=== PATIENT | male | born 1995 | race African-American/Black ===

== ENCOUNTER 2016-05-12 13:17 | Emergency (ER) | payer OTHER ==
[2016-05-12 13:12] LABS: URINE SOURCE CLEAN CATCH
[2016-05-12 13:14] LABS: URINE APPEARANCE CLEAR; URINE BILIRUBIN NEG (NEG); URINE BLOOD NEG (NEG); URINE COLOR YELLOW; URINE GLUCOSE NEG (NORM); URINE KETONE NEG (NEG); URINE LEUKOCYTE ESTERASE NEG (NEG); URINE NITRATE NEG (NEG); URINE PH 6.5 (5-8); URINE PROTEIN NEG (NEG)
[2016-05-12 13:15] LABS: MICRO INDICATED? NO
[2016-05-14 13:04] LABS: CHLAMYDIA TRACH Not Detected (Not Detected); N GONOR Not Detected (Not Detected)
== END 2016-05-12 15:28 | disposition home or self-care (01) ==
LOC: SED 13:17
PROVIDERS: Nurse Practitioner
DX: N34.1 Nonspecific urethritis (principal); F17.200 Nicotine dependence, unspecified, uncomplicated
CPT/HCPCS: 81003; 87491; 87591; 96372; 99283; J0696